=== PATIENT | female | born 1955 | race Caucasian/White ===

== ENCOUNTER 2019-10-05 16:04 | Outpatient (CLI) | payer OTHER ==
--- NOTE | 2019-10-05 16:33 | RAD ---
LEFT ANKLE THREE VIEWS: 10/05/19 HISTORY: Left ankle pain. FINDINGS/IMPRESSION: The ankle mortise is maintained. No fracture, dislocation or bony destruction is seen. Calcaneal spur s are present. There is a well corticated bony density adjacent to the medial malleolus which may rep resent remote trauma. POS: [facility]
== END 2019-10-05 16:05 | disposition home or self-care (01) ==
LOC: BICRAD 16:04
PROVIDERS: ATTEND Family Medicine
DX: M25.572 Pain in left ankle and joints of left foot (principal)

== ENCOUNTER 2022-12-04 08:16 | Outpatient (CLI) | payer MEDICARE | END 2022-12-04 08:17 | disposition home or self-care (01) | LOC: BICMAMMO 08:16 | PROVIDERS: ATTEND Family Medicine | DX: Z13.820 Encounter for screening for osteoporosis (principal); M85.89 Other specified disorders of bone density and structure, multiple sites | CPT/HCPCS: 77080 ==

== ENCOUNTER 2024-01-01 15:46 | Outpatient (CLI) | payer MEDICARE | END 2024-01-01 15:47 | disposition home or self-care (01) | LOC: ULT 15:46 | PROVIDERS: ATTEND Family Medicine | DX: R22.9 Localized swelling, mass and lump, unspecified (principal) | CPT/HCPCS: 76882 ==